=== PATIENT | female | born 1945 | race Caucasian/White ===

== ENCOUNTER 2020-06-27 16:36 | Emergency (ER) | payer MEDICARE ==
[~2020-06-27 16:36] MED LIST: MEDROL 4MG DOSEP4 MG PO; ROBAXIN500 MG PO
== END 2020-06-27 18:53 | disposition home or self-care (01) ==
LOC: FER 16:36
DX: S20.211A Contusion of right front wall of thorax, initial encounter (principal); I10 Essential (primary) hypertension; F03.90 Unspecified dementia, unspecified severity, without behavioral disturbance, psychotic disturbance, mood disturbance, and anxiety; J44.9 Chronic obstructive pulmonary disease, unspecified; Z79.82 Long term (current) use of aspirin; Z79.899 Other long term (current) drug therapy; W18.09XA Striking against other object with subsequent fall, initial encounter
CPT/HCPCS: 71046; 71100